=== PATIENT | female | born 1950 | race Caucasian/White ===

== ENCOUNTER → 2020-01-18 14:46 | Outpatient (CLI) | payer MEDICARE, SELFPAY ==
--- NOTE | ~2020-01-18 | CT_ITS ---
EXAMINATION: CT chest w con EXAM DATE: 01/18/2020 16:00 INDICATION: Lung nodule on MRI. TECHNIQUE: Spiral CT of the chest following intravenous injection of 75 mL Omnipaque 350. Axial, cor onal and sagittal images were reviewed. Coronal maximum intensity pixel images of chest reviewed. Susy he dose-length product (DLP) for this examination was 141.48 mGy-cm. The exposure was tailored accor ding to patient size (auto mA exposure control), and iterative reconstruction (ASIR) was used as briana tional dose reduction technique. There is no prior study for comparison. FINDINGS: There is an oblong-shaped left upper lobe nodule with surrounding groundglass halo, which can indicate this is acute inflammatory process. Solid component measures about 1.0 x 1.6 cm. Differe ntial diagnosis includes primary lung cancer. Given that PET/CT could be positive for both of this pr ocesses, short interval follow-up chest CT is recommended in 1 month. If this persists unchanged on f ollow-up then biopsy indicated. There is biapical scarring. There is mild to moderate emphysema. There are no pleural or pericardial effusions. Tracheobronchial tree is patent. There is no mediastinal, hilar or axillary lymphadeno jie. There is no pneumothorax. There is a right-sided aortic arch, normal congenital variance. Li thania and spleen in normal position. Heart normal in size. No evidence of coronary arterial calcifica tion. Breast implants. Upper abdomen is unremarkable. There is thoracic spondylosis without osteob lastic or osteolytic lesions identified. IMPRESSION: 1. Left upper lobe infection or primary lung cancer. Recommend one-month follow-up low-dose chest CT . 2. Mild to moderate emphysema. Reviewed, dictated and finalized at location B. PHERE PORTAL DEVELOPER IMPRESSION: 1. Left upper lobe infection or primary lung cancer. Recommend one-month follo w-up low-dose chest CT. 2. Mild to moderate emphysema.
[2020-01-18 15:38] LABS: Blood Urea Nitrogen 16 mg/dL (8-26); Estimated Glomerular Filt Rate > 60
== END ==
PROVIDERS: PCP Family Medicine; Visit Provider Family Medicine
DX: R91.1 Solitary pulmonary nodule (principal); J43.9 Emphysema, unspecified
CPT/HCPCS: 71260; Q9967

== ENCOUNTER → 2020-02-09 09:27 | Outpatient (CLI) | payer MEDICARE, SELFPAY ==
--- NOTE | ~2020-02-09 | CT_ITS ---
EXAMINATION: CT chest wo con DATE: 02/09/2020 09:41 INDICATION: Solitary pulmonary nodule TECHNIQUE: Computed tomography (CT) of the chest was performed without intravenous contrast. The dose -length product (DLP) was 41.77 mGy-cm. Automated exposure control and iterative reconstruction techn ique were employed. COMPARISON: 01/18/2020 FINDINGS: There has been interval decrease in size of the previously described left upper lobe nodule which measures 1.1 x 0.7 cm, previously 1.6 x 1.0 cm. There is moderate emphysema. No pleural effusi on or pneumothorax is identified. Symmetric scarring is present in the lung apices. There are cluster ed tree-in-bud nodules in the right lower lobe which have decreased, consistent with resolving infect ion/inflammation. Bilateral breast implants are noted. No pathologically enlarged thoracic lymph node s are identified. The heart size is normal. Calcified mediastinal lymph nodes are consistent with old granulomatous disease. A right-sided aortic arch is noted. Punctate calcifications in an otherwise n ormal spleen likely represent healed granulomatous disease. There is mild thoracic spondylosis. IMPRESSION: 1. Interval decrease in size of a right upper lobe nodule, likely resolving infection/inflammation. 2. Resolving tree-in-bud opacities of the right lower lobe, also likely resolving infection/inflammat ion. 3. Moderate emphysema. Reviewed, dictated and finalized at location A. IMPRESSION: 1. Interval decrease in size of a right upper lobe nodule, likely resolving inf ection/inflammation. 2. Resolving tree-in-bud opacities of the right lower lobe, also likely resolvi ng infection/inflammation. 3. Moderate emphysema.
== END ==
PROVIDERS: PCP Family Medicine; Visit Provider Family Medicine
DX: R91.1 Solitary pulmonary nodule (principal); J43.9 Emphysema, unspecified; R91.8 Other nonspecific abnormal finding of lung field
CPT/HCPCS: 71250

== ENCOUNTER 2020-06-19 10:53 | Outpatient (CLI) | payer OTHER, SELFPAY ==
--- NOTE | 2020-06-19 10:55 | ECG_ITS ---
Measurements Intervals [place] Rate: 80 P: 67 MI: 172 QRS: -10 QRSD: 95 T: 66 QT: 376 QTc: 434 Interpretive Statements SINUS RHYTHM POSSIBLE LEFT ATRIAL ENLARGEMENT INCOMPLETE RIGHT BUNDLE BRANCH BLOCK CANNOT RULE OUT SEPTAL INFARCT, AGE INDETERMINATE BASELINE ARTIFACT- I, II, III, V6 ABNORMAL ECG Electronically Signed On 06-19-2020 11:04:05 CDT by Brian Zacarias D.O.
== END 2020-06-19 10:54 | disposition home or self-care (01) ==
LOC: ANHSURGERY 10:54
PROVIDERS: PCP Family Medicine; Visit Provider Surgery Plastic and Reconstructive Surgery
DX: I10 Essential (primary) hypertension (principal); Z01.810 Encounter for preprocedural cardiovascular examination; I45.10 Unspecified right bundle-branch block
CPT/HCPCS: 93005

== ENCOUNTER 2020-06-20 00:10 | Outpatient (CLI) | payer OTHER, SELFPAY ==
[2020-06-20 17:56] LABS: SARS-CoV-2 RNA PCR Negative
== END 2020-06-20 00:11 | disposition home or self-care (01) ==
LOC: ANHCOVIDDT 00:11
PROVIDERS: PCP Family Medicine; Visit Provider Surgery Plastic and Reconstructive Surgery
DX: Z01.818 Encounter for other preprocedural examination (principal); Z11.59 Encounter for screening for other viral diseases
CPT/HCPCS: 87635; C9803; U0003

== ENCOUNTER 2020-06-22 02:29 | Day surgery (SDC) | payer OTHER, SELFPAY ==
[2020-06-14 10:42] VITALS: BMI 18.0
--- NOTE | 2020-06-21 09:14 | P.PNAN_ITS ---
Anes - Initial Pre Proc Eval Procedure: Operation Date: 06/22/20 07:30 Proposed Procedures p Bilateral Breast Implant Exchange - Yong Porter MD Date/Time: 06/21/20 09:14 Surgeon: Yong Porter MD Pre Op Diagnosis: Breast Implant Rupture Patient Data Age: 70 Gender: F Height: 1.66 m Weight: 50 kg Allergies Allergy/AdvReac Type Severity Reaction Status Date / Time Sulfa (Sulfonamide Allergy Unknown Skin Verified 06/14/20 10:41 Antibiotics) Reaction Home Medications Medication Instructions Recorded Confirmed Type lisinopril [Zestril] 10 mg QAM 10/01/19 06/14/20 History alprazolam 0.25 mg tablet 0.25 mg PO TID PRN #90 tablet 01/18/20 06/14/20 Rx aspirin 81 mg PO DAILY 06/14/20 06/14/20 History calcium carbonate-vitamin D3 1 tablet PO DAILY 06/14/20 06/14/20 History [Calcium 500 + D] cholecalciferol (vitamin D3) 25 mcg PO DAILY 06/14/20 06/14/20 History cyclosporine [Restasis] 1 drp OPHTHALMIC (EYE) DAILY 06/14/20 06/14/20 History denosumab [Prolia] 60 mg SUBCUT [id number] 06/14/20 06/14/20 History omega3,5,6,7,9 no.1-salmon oil 1 cap PO DAILY 06/14/20 06/14/20 History [Complete [place]] carisoprodol 350 mg tablet 350 mg PO TID PRN #21 tablet 06/19/20 06/19/20 Rx docusate sodium 100 mg capsule 100 mg PO DAILY #14 cap 06/19/20 Rx ondansetron HCl 4 mg tablet 4 mg PO Q8H #28 tablet 06/19/20 Rx tramadol 50 mg tablet 50 mg PO Q6H PRN #15 tablet 06/19/20 06/19/20 Rx Patient hx anesthesia problems: none Family hx anesthesia problems: none PMFSH Past Medical History Medical History (Updated 06/21/20 @ 09:13 by Manuel Crowder DO) Anxiety Hypertension Osteoporosis Tubal ligation evaluation Surgical History Surgical History H/O breast augmentation Social History Social History Smoking status: Former smoker Tobacco type: cigarettes Additional smoking assessment comments: STATES SOCCIAL SMOKER QUIT AGE 23 Alcohol intake: current Substance use: never Living arrangements: with family Spiritual care concerns: No Anes - Eval Final PreProcedure Day of Procedure 06/21/20 09:14 Patient weight: normal Heart: regular rate and rhythm Lungs: clear to auscultation and normal air movement Airway: Mallampati scale class III Neurological: alert and oriented Last oral intake: >/= 8 hours ASA classification: II Emergent: no Anesthetic plan: proceed Anesthesia type and monitoring: general LMA and standard monitoring Informed Consent: The patient's anesthetic plan and its attendant risks and benefits were discussed with the patient/family/POA. Questions were solicited and answers provided to the satisfaction of the patient/family/POA.
[2020-06-22] VITALS (9 sets, daily range): BP systolic 102–136; BP diastolic 59–91; PULSE 65–81; RESP 14–20; TEMP 36.6–36.9; O2SAT 94–100
[2020-06-22] MEDS: LACTATED RINGERS 1,000 ML 30 ML IV CONT ×2 (06:55→09:34)
--- NOTE | 2020-06-22 06:58 | WPDHPUPDATE1 ---
History and Physical Update Update Date/Time: 06/22/20 06:58 History and Physical has been reviewed, including an updated exam of the patient. There are NO changes in the patient's condition. Risks, benefits, and alternatives have been discussed and questions answered. Patient agrees to proceed with procedure.
--- NOTE | 2020-06-22 07:19 | PM.PROC ---
Procedure Note - Detailed Date of procedure: 06/22/20 Pre-op diagnosis: Breast Implant Rupture Post-op diagnosis: same Procedure performed: Bilateral breast implant exchange Description of procedure: Patient is here today for bilateral breast implant exchange. She is currently believed to be textured implants subglandular. She did have an MRI which shows left breast implant rupture. She would like proceed with implant exchange. She would like to send her capsules, at her expense, to pathology. Risks, benefits, alternatives again today were discussed in extensive detail. I want her to be very realistic about the risks involved as well as expectations. She understands we are going to a submuscular position and using a smooth implant. I was very up front honest about the limitations and differences of this from what she has. She understands there is always risk of implant loss due to infection or other causes. All questions answered and consent obtained. She was marked in the preoperative holding area with her verification. She was taken to the operating room placed supine on the operating room table. Anesthesia provided by anesthesiology and prepped and draped in standard sterile fashion. Surgical time-out was taken. 1% lidocaine and 0.25% Marcaine with epinephrine was used to provide a field block. A 15 blade used to excise the previous scar. I continued until the capsule was identified and removed the entire capsule bilateral. These were sent to pathology. I then incised the pectoralis major along its inferior border. I created a subpectoral pocket the appropriate dimensions. I irrigated with 3 L of bacitracin containing saline TUR tubing. I used 2-0 Vicryl to approximate the muscle to breast tissue in order to obliterate space and prevent migration of the implant to the wrong pocket. I verified a strict hemostasis and bilateral pockets. I used Betadine triple antibiotic containing solution and irrigated the pockets. Using a Huynh funnel and the no-touch technique the implant was introduced into the pocket. I closed using 2-0 Vicryl followed by 3-0 Monocryl running subcuticular 4-0 Monocryl and tissue glue. Dressings were placed. Implants: Bilateral subglandular changed to submuscular (dual plane). Right: REF SRLP-280 SN [id number] Left: REF SRLP-280 SN [id number] Anesthesia: GLMA Surgeon: Yong Porter MD Estimated blood loss (mL): 5 Drains: No Packing: No Pathology: yes (Completely excised capsule.) Complications: No immediate complications Condition: stable Disposition: PACU
[2020-06-22] MEDS: ceFAZolin 2 GM/D5W 50 ML 2 GM/50 ML BAG IVPB (07:29)
[2020-06-22] MEDS: LIDO 1%/EPINEPHRINE 1:100,000 20 ML VIAL 40 ML INFILTRATE (07:59)
[2020-06-22] MEDS: traMADol HCL 50 MG TABLET PO (10:47)
== END 2020-06-22 11:24 | disposition home or self-care (01) ==
PROVIDERS: PCP Family Medicine; Visit Provider Surgery Plastic and Reconstructive Surgery
PROC: (CPT 19342; principal; 2020-06-22 07:30)
DX: T85.41XA Breakdown (mechanical) of breast prosthesis and implant, initial encounter (principal); Y83.8 Other surgical procedures as the cause of abnormal reaction of the patient, or of later complication, without mention of misadventure at the time of the procedure; I10 Essential (primary) hypertension; M81.0 Age-related osteoporosis without current pathological fracture; F41.9 Anxiety disorder, unspecified; Z79.82 Long term (current) use of aspirin; Z87.891 Personal history of nicotine dependence
CPT/HCPCS: 19371; 19340; 88304; 88305; A9270; J0690; J1100; J1580; J2250; J2405; J2704; J3010; J7030; J7120

== ENCOUNTER → 2021-02-07 14:22 | Outpatient (CLI) | payer MEDICARE, SELFPAY ==
--- NOTE | ~2021-02-07 | CT_ITS ---
EXAMINATION: CT abdomen pelvis w con DATE: 02/07/2021 14:59 INDICATION: Left upper quadrant and epigastric abdominal pain. Abdominal and pelvic swelling. TECHNIQUE: Computed tomography (CT) of the abdomen and pelvis was performed with 100 cc Omnipaque 350 intravenous contrast. Automated exposure control and iterative reconstruction technique were employe d. Exam dose: 238.65 mGy-cm total exam DLP. COMPARISON: 02/09/2020 CT chest FINDINGS: The lung bases are clear of consolidation. Heart size is within normal limits. Right breast implant is partially included in this examination. The liver, gallbladder, bile ducts, pancreas and pancreatic duct are unremarkable. Multiple calcified splenic granulomas. Normal splenic size. Normal morphology of the adrenal glands. No renal mass lesion. No urinary tract calculus or hydroureteronephrosis is evident. The urinary blad nila and uterus unremarkable. Normal caliber of the abdominal aorta. No intraperitoneal or retroperitoneal or pelvic mass lesion or adenopathy or ascites. No bowel obstruction, bowel wall thickening, pneumatosis or intraperitoneal free air is evident. No suspicious osteolytic or osteoblastic lesions are noted. Osteoarthritic changes are noted at the h ips. IMPRESSION: Reviewed, dictated and finalized at Location A. Reviewed, dictated and finalized at location A. IMPRESSION:
[2021-02-07 14:45] LABS: Estimated Glomerular Filt Rate > 60
== END ==
PROVIDERS: PCP Family Medicine; Visit Provider Physician Assistant Medical
DX: R19.00 Intra-abdominal and pelvic swelling, mass and lump, unspecified site (principal)
CPT/HCPCS: 74177; Q9967

== ENCOUNTER 2022-08-07 14:57 | Outpatient (CLI) | payer MEDICARE, SELFPAY ==
[2022-08-07 18:54] LABS: Iron 118 ug/dL (37-170)
[2022-08-07 19:05] LABS: Percent Iron Saturation 36 % (20-50)
[2022-08-07 19:06] LABS: Transferrin 259 mg/dL (206-381)
== END 2022-08-07 14:58 | disposition home or self-care (01) ==
LOC: ANHGOSHLAB 14:58
PROVIDERS: PCP Family Medicine; Visit Provider Physician Assistant
DX: D64.9 Anemia, unspecified (principal)
CPT/HCPCS: 36415; 82728; 83540; 83550; 84466

== ENCOUNTER 2023-06-14 10:49 | Outpatient (CLI) | payer MEDICARE, SELFPAY ==
[2023-06-14 11:13] LABS: Calcium 9.8 mg/dL (8.4-10.2); Estimated Glomerular Filt Rate > 60
== END 2023-06-14 10:50 | disposition home or self-care (01) ==
LOC: ANHLAB 10:51
PROVIDERS: PCP Family Medicine; Visit Provider Family Medicine
DX: Z51.81 Encounter for therapeutic drug level monitoring (principal)
CPT/HCPCS: 36415; 82310; 82565

== ENCOUNTER 2024-01-08 07:55 | Outpatient (CLI) | payer MEDICARE, SELFPAY ==
[2024-01-08 19:01] LABS: Basophils Absolute Auto 0.1 K/mm3 (0.0-0.1); Basophils Percent Auto 1.2 % (0.2-1.2); Eosinophils Absolute Auto 0.3 K/mm3 (0-0.3); Eosinophils Percent Auto 5.1 % (0-4.4); Hematocrit 37.6 % (37.0-47.0); Hemoglobin 11.9 g/dL (12.0-15.0); Immature Granulocyte Absolute 0.02 K/mm3 (0.00-0.031); Immature Granulocyte Percent A 0.4 % (0-0.5); Lymphocytes Absolute Auto 1.87 K/mm3 (0.9-3.2); Mean Corpuscular HGB Conc 31.6 g/dl (32-36); Mean Corpuscular Hemoglobin 31.5 pg (26-34); Mean Corpuscular Volume 99.5 fl (80-100); Mean Platelet Volume 10.4 fl (7.4-10.4); Monocytes Absolute Auto 0.5 K/mm3 (0.1-0.6); Monocytes Percent Auto 9.3 % (2.6-8.5); Neutrophils Absolute Auto 2.4 K/mm3 (1.3-6.7); Platelet Count Result 247 k/mm3 (150-375); Red Blood Count 3.78 M/mm3 (4.2-5.4); Red Cell Distribution Width 12.3 % (11.5-14.5); White Blood Count 5.1 K/mm3 (4.5-10.0)
[2024-01-08 19:32] LABS: LDL Cholesterol Direct 108 mg/dL
[2024-01-08 19:41] LABS: Vitamin D 25 Hydroxy 53.8 ng/mL
[2024-01-08 20:13] LABS: Anion Gap 5 mmol/L (8-16); Blood Urea Nitrogen 30 mg/dL (7-17); Calcium 10.3 mg/dL (8.4-10.2); Carbon Dioxide 28 mmol/L (22-30); Chloride 105 mmol/L (98-107); Cholesterol 264 mg/dL (0-200); Estimated Glomerular Filt Rate > 60; Glucose 92 mg/dL (65-110); Potassium 5.5 mmol/L (3.4-5.0); Sodium 138 mmol/L (137-145); Triglycerides 67 mg/dL (<150)
[2024-01-08 21:05] LABS: HDL Direct 138 mg/dL
== END 2024-01-08 07:56 | disposition home or self-care (01) ==
PROVIDERS: PCP Family Medicine; Visit Provider Nurse Practitioner Family
DX: E55.9 Vitamin D deficiency, unspecified (principal); E78.2 Mixed hyperlipidemia; M81.0 Age-related osteoporosis without current pathological fracture; I10 Essential (primary) hypertension
CPT/HCPCS: 36415; 80048; 80061; 82306; 84443; 85025

== ENCOUNTER 2024-01-15 13:26 | Outpatient (CLI) | payer MEDICARE, SELFPAY ==
[2024-01-15 19:29] LABS: Alanine Aminotransferase 29 U/L (6-35); Albumin Level 4.2 g/dL (3.5-5.1); Alkaline Phosphatase 91 U/L (38-126); Anion Gap 5 mmol/L (8-16); Aspartate Amino Transferase 53 U/L (14-36); Blood Urea Nitrogen 32 mg/dL (7-17); Carbon Dioxide 26 mmol/L (22-30); Chloride 104 mmol/L (98-107); Estimated Glomerular Filt Rate > 60; Glucose 102 mg/dL (65-110); Potassium 4.7 mmol/L (3.4-5.0); Sodium 135 mmol/L (137-145)
== END 2024-01-15 13:27 | disposition home or self-care (01) ==
LOC: ANHGOSHLAB 13:28
PROVIDERS: PCP Family Medicine; Visit Provider Nurse Practitioner Family
DX: R74.8 Abnormal levels of other serum enzymes (principal); E87.8 Other disorders of electrolyte and fluid balance, not elsewhere classified
CPT/HCPCS: 36415; 80053

== ENCOUNTER 2024-07-29 12:34 | Outpatient (CLI) | payer MEDICARE, SELFPAY ==
[2024-07-29 19:00] LABS: Anion Gap 8 mmol/L (4-12); Blood Urea Nitrogen 25 mg/dL (7-17); Calcium 9.6 mg/dL (8.4-10.2); Carbon Dioxide 30 mmol/L (22-30); Chloride 97 mmol/L (98-107); Estimated Glomerular Filt Rate > 60; Glucose 183 mg/dL (65-110); Potassium 4.3 mmol/L (3.4-5.0); Sodium 135 mmol/L (137-145)
== END 2024-07-29 12:35 | disposition home or self-care (01) ==
PROVIDERS: PCP Family Medicine; Visit Provider Family Medicine
DX: M81.0 Age-related osteoporosis without current pathological fracture (principal); E55.9 Vitamin D deficiency, unspecified; Z51.81 Encounter for therapeutic drug level monitoring
CPT/HCPCS: 36415; 80048

== ENCOUNTER 2024-11-12 08:06 | Outpatient (CLI) | payer MEDICARE, SELFPAY ==
[2024-11-12 18:24] LABS: Alanine Aminotransferase 23 U/L (6-35); Albumin Level 4.6 g/dL (3.5-5.1); Alkaline Phosphatase 64 U/L (38-126); Anion Gap 3 mmol/L (4-12); Aspartate Amino Transferase 56 U/L (14-36); Bilirubin,Total 1.1 mg/dL (0.2-1.3); Blood Urea Nitrogen 27 mg/dL (7-17); Calcium 9.8 mg/dL (8.4-10.2); Carbon Dioxide 27 mmol/L (22-30); Chloride 105 mmol/L (98-107); Estimated Glomerular Filt Rate > 60; Glucose 74 mg/dL (65-110); Potassium 4.5 mmol/L (3.4-5.0); Sodium 135 mmol/L (137-145)
[2024-11-12 18:54] LABS: Vitamin D 25 Hydroxy 61.2 ng/mL
[2024-11-12 18:58] LABS: Hemoglobin A1C 5.3 % (<5.7)
== END 2024-11-12 08:07 | disposition home or self-care (01) ==
LOC: ANHGOSHLAB 08:08
PROVIDERS: PCP Family Medicine; Visit Provider Family Medicine
DX: R73.9 Hyperglycemia, unspecified (principal); R74.8 Abnormal levels of other serum enzymes; E55.9 Vitamin D deficiency, unspecified; M81.0 Age-related osteoporosis without current pathological fracture; Z51.81 Encounter for therapeutic drug level monitoring; Z79.899 Other long term (current) drug therapy
CPT/HCPCS: 36415; 80053; 82306; 83036

== ENCOUNTER 2025-02-09 08:16 | Outpatient (CLI) | payer MEDICARE, SELFPAY ==
--- OUTSIDE RECORDS SUMMARY | 2025-02-09 08:33 | XMS_ITS | CCD ---
Author Organization Unknown Care Team Providers Care Ecommerce Merchandising Manager Name Role Phone Lyly Balbuena MD Primary Care Provider Unavailab le Unavailable Chronic Care Management Unavaila ble Summary Purpose DataExchange Family History Family History data not found Problems Condition Codes Effective Dates Condition St atus Encounter for immunization ICD-10: Z23 ICD-9: V05.9 12/16/2020 Active Medication Administered No Medication Administered data Immunizations Vaccine Codes Dose Date Status COVID-19 IMM CVX: 213 01/08/2021 COVID-19 IMM CVX: 213 12/16/2020 Reason For Visit No Reason For Visit data Medical Equipment No Medical Equipment data Advance Directives No Advance Directive data
--- OUTSIDE RECORDS SUMMARY | 2025-02-09 08:33 | XMS_ITS | CCD ---
Author Organization Unknown Care Team Providers Care Copper Plater Name Role Phone Lyly Balbuena MD Primary [...]
--- OUTSIDE RECORDS SUMMARY | 2025-02-09 08:33 | XMS_ITS | Clinical Summary ---
Author Organization [facility] Address [address] [facility] [address] Attn: Epic Prelude ADT LENI ROMAN [id number] Care Team Providers Care Regulator Mechanic Name Role Phone Unavailable Primary Care Provider Unavailabl e Medications denosumab (Prolia) 60 mg/mL Syringe Inject 1 ml (60 mg) under the skin once every 6 months 1 mL 3 01/20/20 25 Active denosumab (Prolia) 60 mg/mL Syringe Inject 60 mg subcutaneously every 6 months. 1 mL 3 4 2:05 PM CDT 12/30/19 24 025 Discontin ued(Reord er) Social History Tobacco Use Types Packs/Day Years Used Date Smoking Tobacco: Never Assessed Comments Unknown Sex and Gender Information Value Date Recorded Sex Assigned at Not on file Legal Sex Female 7:49 AM CDT Gender Identity Not on file Sexual Orientation Not on file Plan of Treatment Health Maintenance Due Date Last Done Comments DTAP/TDAP/TD VACCINES (1 - Tdap) 1969 BREAST CANCER SCREENING 1990 COLORECTAL SCREENING 1995 Colorectal Cancer Screening 1995 FIT-DNA Q 3 years 1995 FIT/FOBT Q 1 year 1995 Flex Sig/CT Colonography Q 5 years 1995 PNEUMOCOCCAL VACCINE 50+ YEARS (1 of 1 - PCV) 05/19/20 00 ZOSTER VACCINE (1 of 2) 2000 OSTEOPOROSIS SCREENING 2015 INFLUENZA VACCINE (#1) 2024 RSV VACCINE (60+ or ) (1 - 1-dose 75+ series) 2025 Insurance GABRIELLA CHAVEZ [id number] RX [employer] Medicare Part D
--- OUTSIDE RECORDS SUMMARY | 2025-02-09 08:33 | XMS_ITS | Clinical Summary ---
Author Organization [facility] Address [address] [place] [address] Care Team Providers Care Door Patcher Name Role Phone Kt Rodriguez MD Primary Care Provider [phone] Allergies Active Allergy Reactions Criticality Noted Date Comments Sulfa (Sulfonamide Antibiotics) Hives 03/25 Medications ALPRAZolam (XANAX) 0.25 MG tablet Take by mouth nightly as needed. Active omeprazole (PRILOSEC) 40 MG delayed release capsuleIndicati ons:Snoring Take 1 capsule by mouth bedtime. 30 capsule 10 04/14/2013 Active oxyCODONE-aceta minophen (PERCOCET) 5-325 mg per tablet Take 1 tablet by mouth every 6 hours as needed for Pain. 10 tablet 0 09/18/2013 Active Active Problems Problem Noted Date Diagnosed Date Sleep-disordered breathing 04/14/2013 Sleep apnea, obstructive 04/14/2013 Lingual tonsil hypertrophy 04/14/2013 Reflux laryngitis 04/14/2013 Immunizations Immunization Administration Dates Next Due Covid-19 (Pfizer 12 yr+) (PF ) 30 mcg/0.3 mL bivalent, mRNA, andrey (GRIFFIN) 08/22/2022 Covid-19 (Pfizer 12 yr+) (PF ) 30 mcg/0.3 mL mRNA, andrey, vaccine (GRIFFIN) 04/12/2022 Family History Medical History Relation Name Comments Cancer Father Relation Name Status Comments Father Social History Tobacco Use Types Packs/Day Years Used Date Smoking Tobacco: Never Smokeless Tobacco: Never Alcohol Use Standard Drinks/Week Comments Yes 1 (1 standard drink = 0.6 oz pur e alcohol) Comments Unknown Sex and Gender Information Value Date Recorded Sex Assigned at Not on file Legal Sex Female 9:53 PM EDT Gender Identity Not on file Sexual Orientation Not on file Last Filed Vital Signs Vital Sign Reading Time Taken Comments Blood Pressure 107/72 04/14/2013 9:17 AM EDT Pulse 76 04/14/2013 9:17 AM EDT Temperature 36.7 C (98.1 F) 04/14/2013 9:17 AM EDT Respiratory Rate - - Oxygen Saturation 99% 04/14/2013 9:17 AM EDT Inhaled Oxygen Concentration - - Weight 50.6 kg (111 lb 9.6 oz) 04/14/2013 9:17 A M EDT Height 168 cm (5' 6.14 ) 04/14/2013 9:17 AM EDT Body Mass Index 17.94 04/14/2013 9:17 AM EDT Plan of Treatment Health Maintenance Due Date Last Done Comments HEPATITIS C SCREENING 1950 MEDICARE ANNUAL WELLNESS VISIT 1950 DTAP/TDAP/TD VACCINES (1 - Tdap) 1969 COLON CANCER SCREENING MONITORING 1995 BREAST CANCER SCREENING 2 YE AR MAMMOGRAM 2000 PNEUMOCOCCAL VACCINE: 50+ YE ARS (1 of 1 - PCV) 2000 COVID-19 Vaccine (2023-2 5 season) 2024 08/22/2022, 04/12/2022, 01/08/2021, Additional history exists INFLUENZA VACCINE (#1) 2024 08/19/2022 ZOSTER VACCINE (SHINGRIX) Completed 01/28/2022, OSTEOPOROSIS SCREENING DEXA SCAN Completed 03/11/20 22 Procedures Procedure Name Priority Date/Time Associated Diagnosis Comments DEXA BONE DENSITY AXIAL OR WHOLE BODY Routine 03/11/2022 1:43 PM EDT Age-related osteoporosis without current pathological fracture from Last 3 Months or Most Recently Relevant to Health Maintenance Results * Dexa Bone Density (03/11/2022 1:43 PM EDT) Anatomical Region Laterality Modality Abdomen Nuclear Medicine 03/11/2022 2:28 PM EDT Impressions 03/11/2022 3:32 PM EDT Impression: The patient has osteoporosis, based on the patient's T-score being less than or equal to -2.5 according to World Health Organization (WHO) criteria. Optimize calcium and vitamin D supplementation as appropriate. Risk factor modification, as appropriate, is recommended. Discussion: Continued use of a medication to increase bone mineral density is warranted if clinically appropriate. Follow-Up: The time for follow-up bone densitometry should be determined based on clinical assessment and could be performed in two years in order to evaluate a change in bone mineral density if clinically indicated. A follow-up DXA scan should be performed using the same DXA machine in order to make a direct comparison between bone mineral density evaluations. Dictated by: Gerardo Schmitt DO. 03/11/2022 2:28 PM Gary Lilly MD, have reviewed the study and agree with the findings in this report. 03/11/2022 3:32 PM Narrative 03/11/2022 3:32 PM EDT EXAMINATION: BONE DENSITY 03/11/2022 1:43 PM LOCATION: [facility] SCANNER MODEL: Precognate ([id number]) SOFTWARE VERSION: 13.6.0.2 ACCESSION NUMBER: [id number] INDICATION: Age-related osteoporosis without current pathological fracture. COMPARISON: None. FINDINGS: Bone Density: Region BMD T-score Z-score Classification AP Spine(L1-L4) 0.835 -1.9 0.3 Osteopenia Femoral Neck (Left) 0.713 -1.2 0.7 Osteopenia Total Hip (Left) 0.648 -2.4 -0.8 Osteopenia Femoral Neck (Right) 0.617 -2.1 -0.2 Osteopenia Total Hip (Right) 0.603 -2.8 -1.2 Osteoporosis Total Hip Mean 0.626 -2.6 -1.0 Osteoporosis World Health Organization criteria for BMD impression classify patients as: Normal (T-score at or above -1.0), Osteopenia (T-score between -1.0 and -2.5), or Osteoporosis (T-score at or below -2.5). Patient has been given treatment. Extended Spine: Region Area BMC BMD T-score Peak Z-score Age cm2 g g/cm2 Reference Matched L1 13.66 10.76 0.788 -1.8 80 0.1 102 L2 15.03 12.79 0.851 -1.6 83 0.6 108 L3 15.76 13.13 0.833 -2.3 77 0.0 100 L4 17.61 15.15 0.860 -1.8 81 0.5 107 L1-L2 28.69 23.55 0.821 -1.4 84 0.6 109 L1,L3 29.42 23.89 0.812 -1.8 80 0.3 105 L1,L4 31.27 25.91 0.829 -1.9 80 0.3 104 L2-L3 30.79 25.92 0.842 -2.0 80 0.3 104 L2,L4 32.64 27.94 0.856 -2.0 79 0.3 104 L3-L4 33.37 28.28 0.847 -2.3 77 0.0 100 L1-L3 44.45 36.69 0.825 -1.8 81 0.4 106 L1-L2,L4 46.30 38.70 0.836 -1.8 81 0.4 105 L1,L3-L4 47.03 39.04 0.830 -2.0 79 0.2 103 L2-L4 48.40 41.07 0.849 -2.1 79 0.2 103 L1-L4 62.06 51.83 0.835 -1.9 80 0.3 104 Procedure Note Gary Parish MD - 03/11/2022 EXAMINATION: BONE DENSITY 03/11/2022 1:43 PM LOCATION: [facility] SCANNER MODEL: Precognate ([id number]) SOFTWARE VERSION: 13.6.0.2 ACCESSION NUMBER: [id number] INDICATION: Age-related osteoporosis without current pathologicalfracture. COMPARISON: None. FINDINGS: Bone Density: Region BMD T-score Z-score Classification AP Spine(L1-L4) 0.835 -1.9 0.3 Osteopenia Femoral Neck (Left) 0.713 -1.2 0.7 Osteopenia Total Hip (Left) 0.648 -2.4 -0.8 Osteopenia Femoral Neck (Right) 0.617 -2.1 -0.2 Osteopenia Total Hip (Right) 0.603 -2.8 -1.2 Osteoporosis Total Hip Mean 0.626 -2.6 -1.0 Osteoporosis World Health Organization criteria for BMD impression classify patients as: Normal (T-score at or above -1.0), Osteopenia (T-score between -1.0 and -2.5), or Osteoporosis (T-score at or below -2.5). Patient has been given treatment. Extended Spine: Region Area BMC BMD T-score Peak Z-score Age cm2 g g/cm2 Reference Matched L1 13.66 10.76 0.788 -1.8 80 0.1 102 L2 15.03 12.79 0.851 -1.6 83 0.6 108 L3 15.76 13.13 0.833 -2.3 77 0.0 100 L4 17.61 15.15 0.860 -1.8 81 0.5 107 L1-L2 28.69 23.55 0.821 -1.4 84 0.6 109 L1,L3 29.42 23.89 0.812 -1.8 80 0.3 105 L1,L4 31.27 25.91 0.829 -1.9 80 0.3 104 L2-L3 30.79 25.92 0.842 -2.0 80 0.3 104 L2,L4 32.64 27.94 0.856 -2.0 79 0.3 104 L3-L4 33.37 28.28 0.847 -2.3 77 0.0 100 L1-L3 44.45 36.69 0.825 -1.8 81 0.4 106 L1-L2,L4 46.30 38.70 0.836 -1.8 81 0.4 105 L1,L3-L4 47.03 39.04 0.830 -2.0 79 0.2 103 L2-L4 48.40 41.07 0.849 -2.1 79 0.2 103 L1-L4 62.06 51.83 0.835 -1.9 80 0.3 104 Impression: The patient has osteoporosis, based on the patient's T-score being less than or equal to -2.5 according to World HealthOrganization (WHO) criteria. Optimize calcium and vitamin D supplementation as appropriate. Riskfactor modification, as appropriate, is recommended. Discussion: Continued use of a medication to increase bone mineral density is warranted if clinically appropriate. Follow-Up: The time for follow-up bone densitometry should be determined based on clinical assessment and could be performed in two years in orderto evaluate a change in bone mineral density if clinically indicated. Afollow-up DXA scan should be performed using the same DXA machine in order to makea direct comparison between bone mineral density evaluations. Dictated by: Gerardo Schmitt DO. 03/11/2022 2:28 PM Gary Lilly MD, have reviewed the study and agree with the findingsin this report. 03/11/2022 3:32 PM Kt Rodriguez MD IMG DEXA ORDERABLES Final Re sult from Last 3 Months or Most Recently Relevant to Health Maintenance Insurance [employer] NON DUAL PLAN [employer] NON DUAL PLAN [facility] [place] [address] Care Teams Door Patcher Relationship Specialty Start Date End Date Kt Rodriguez MD PCP - General 12/22/19
--- OUTSIDE RECORDS SUMMARY | 2025-02-09 08:33 | XMS_ITS | Clinical Summary ---
Author Organization [facility] Address [address] [place] [address] Care Team Providers Care Clay Structure Builder And Servicer Name Role Phone No, Pcp Primary Care Provider Unavailabl e Allergies Active Allergy Reactions Criticality Noted Date Comments Sulfa Antibiotics 05/26/2022 Other reaction(s): itching, rash Medications ALPRAZolam (XANAX) 0.25 MG tablet Take 1 tablet by mouth 3 times daily as needed for Anxiety. Active Denosumab (PROLIA [place]) Inject into the skin Active cycloSPORINE (RESTASIS) 0.05 % ophthalmic emulsion 1 drop into affected eye Ophthalmic Twice a day Active Active Problems No known active problems Encounters Date Type Department Care Team Description 01/27/2025 11:15 AM EST Office Visit Orthopaedics - [address] [place] [address] Amaya Chavez MD Right hand weakness (Primary Dx) 01/19/2025 Telephone Neurosurgery & Spine - [address] - [address] [place] [address] Sam Fajardo MD Call Patient 01/19/2025 Telephone Orthopaedics - [address] [place] [address] Amaya Chavez MD Other (NCS) 11/30/2024 Orders Only Formerly [facility] [address] [facility], [place] [address] Historical Provider, [facility] 11/25/2024 10:00 AM EST Office Visit Neurology - [address] [place] [address] Sam Fajardo MD Paresthesias [R20.2] (Primary Dx) from Last 3 Months Social History Tobacco Use Types Packs/Day Years Used Date Smoking Tobacco: Former Cigarettes Smokeless Tobacco: Never Tobacco Cessation:Counseling Given: Not Answered Comments Unknown Sex and Gender Information Value Date Recorded Sex Assigned at Female 01/26/2025 3:55 PM EST Legal Sex Female 11:36 PM EDT Gender Identity Not on file Sexual Orientation Not on file Last Filed Vital Signs Vital Sign Reading Time Taken Comments Blood Pressure 145/88 10/19/2024 9:58 AM EST Pulse 81 10/19/2024 9:57 AM EST Temperature 36.4 C (97.5 F) 10/19/2024 9:57 AM EST Respiratory Rate 16 07/11/2024 9:45 AM EDT Oxygen Saturation 99% 10/19/2024 9:57 AM EST Inhaled Oxygen Concentration - - Weight 49.9 kg (110 lb) 01/27/2025 11:47 AM EST Height 165.1 cm (5' 5 ) 01/27/2025 11:47 AM EST Body Mass Index 18.3 01/27/2025 11:47 AM EST Plan of Treatment Health Maintenance Due Date Last Done Comments Depression Screen 1962 DTaP/Tdap/Td vaccine (1 - Tdap) 1969 Breast cancer screen 1990 Lipids 1990 Colonoscopy 1995 Colorectal Cancer Screen 1995 FIT/FOBT: Average risk 1995 Fecal-DNA (Cologuard): [place] ge risk 1995 Sigmoidoscopy/CT colonography 1995 Pneumococcal 50+ years Vacci ne (1 of 1 - PCV) 2000 Shingles vaccine (1 of 2) 2000 Flu vaccine (#1) 06/24/2024 COVID-19 Vaccine ( - 2023-2 5 season) 2024 Annual Wellness Visit (Medic are Advantage) 11/24/2024 Respiratory Syncytial Virus (RSV) or age 60 yrs+ (1 - 1-dose 75+ series) 2025 GFR test (Diabetes, CKD 3-4, OR last GFR 15-59) Discontinued 06/07/2021 DEXA (modify frequency per F RAX score) Completed 03/11/2022 Hepatitis C screen Completed 11/30/2024 Hepatitis A vaccine Aged Out No longe r eligible based on patient's age to complete this topic Hepatitis B vaccine Aged Out No longe r eligible based on patient's age to complete this topic Hib vaccine Aged Out No longer eligi ble based on patient's age to complete this topic Meningococcal (ACWY) vaccine Aged Out No longer eligible based on patient's age to complete this topic Meningococcal B vaccine Aged Out No l onger eligible based on patient's age to complete this topic Polio vaccine Aged Out No longer elig ible based on patient's age to complete this topic Procedures Procedure Name Priority Date/Time Associated Diagnosis Comments HEPATITIS A ANTIBODY, TOTAL Routine 11/30/2024 10:17 AM EST HEPATITIS C ANTIBODY Routine 11/30/2024 10:17 AM EST HEPATITIS B CORE ANTIBODY, TOTAL Routine 11/30/2024 10:17 AM EST BASIC METABOLIC PANEL Routine 06/07/2021 5:54 PM EDT from Last 3 Months or Most Recently Relevant to Health Maintenance Results * Hepatitis C Antibody (11/30/2024 10:17 AM EST) Hepatitis C Ab Negative Negative [facility] Marta WATTS Blood 11/30/2024 10:1 7 AM EST 11/30/2024 5:39 PM EST [facility] Historical Provider IMMUNOLOGY ORDERABLES Fi nal Result [facility] [address] [facility], [facility] [place] [address] * (ABNORMAL) Hepatitis A Antibody, Total (11/30/2024 10:17 AM EST) Hep A Total Ab Positive( A) Negative [facility] Comment: Comment: The HAV total antibody assay detects both IgG and IgM but does not differentiate between them. A negative result suggests susceptibility to infection. A positive result could be due to vaccination, previously resolved infection or active infection. Testing for HAV IgM should be performed if active HAV infection is suspected. [facility] offers profiles that will automatically reflex positive HAV total antibody results to IgM (e.g., panel #[id number] HAV Antibody w/ Rfx). Performed At: [facility] [id number] Marcial Toth MD Ph:[phone] Blood 11/30/2024 10:1 7 AM EST 11/30/2024 5:39 PM EST [facility] Historical Provider IMMUNOLOGY ORDERABLES Fi nal Result Performing Organization Address [facility] Co de Phone Number [facility] [address] [address] * Hepatitis B Core Antibody, Total (11/30/2024 10:17 AM EST) Pathologist [facility] Hep B Core Total Ab Negative Negative [facility] Blood 11/30/2024 10:1 7 AM EST 11/30/2024 5:39 PM EST Result [facility] Provider IMMUNOLOGY ORDERABLES Fi nal Result Performing Organization Address [facility] de Phone Number [facility] [address] [place] [address] * (ABNORMAL) Basic Metabolic Panel (06/07/2021 5:54 PM EDT) [facility] Sodium 135 135 - 145 mmol/L [facility] Comment:Performing Lab: [facility] 6000 Pending Potassium 4.8 3.5 - 5.3 mmol/L [facility] Comment:Performing Lab: [facility] 6000 Pending Chloride 102 98 - 107 mmol/L [facility] Comment:Performing Lab: [facility] 6000 Pending CO2 23 22 - 29 mmol/L [facility] Comment:Performing Lab: [facility] 6000 Pending Glucose 90 70 - 99 mg/dL [facility] Comment:Performing Lab: [facility] 6000 Pending BUN 28(H) 8 - 23 mg/dL [facility] Comment:Performing Lab: [facility] 6000 Pending Creatinine 1.3(H) 0.5 - 1.0 mg/dL [facility] Comment:Performing Lab: [facility] 6000 Pending Anion Gap 10 2 - 17 mmol/L [facility] Comment:Performing Lab: [facility] 6000 Pending Osmolaliy Calculated 275 270 - 287 mOsm/kg [facility] Comment:Performing Lab: [facility] 6000 Pending Calcium 10.0 8.8 - 10.2 mg/dL [facility] Comment:Performing Lab: [facility] 6000 Pending GFR 48(L) >=90 mL/min/1.7 3m^2 [facility] Comment: VERIFIED by Discern Expert. Performing Lab: [facility] 6000 Pending GFR Non- 41(L) >=90 mL/min/1.7 3m^2 [facility] Comment: VERIFIED by Discern Expert. Interpretive Data: GFR Interpretation: % OF KIDNEY GFR STAGE FUNCTION == > 90 Normal kidney function STAGE 1 90-100% 89 to 60 Mild loss of kidney function STAGE 2 80-60% 59 to 45 Mild to moderate loss of kidney function STAGE 3a 59-45% 44 to 30 Moderate to severe loss of kidney function STAGE 3b 44-30% 29 to 15 Severe loss of kidney function STAGE 4 29-15% < 15 Kidney failure STAGE 5 <15% == Modified from National Kidney Foundation GFR Calculation performed using the CKD-EPI equation developed for use with IDMS traceable creatinine methods and is the calcualtion recommended by the National Kidney Foundation for estimating GFR in adults. Performing Lab: [facility] [address] Pending 06/07/2021 5:54 PM EDT 06/07/2021 5:55 PM EDT Comment:Blood us Bernice Bazzi PA-C CHEMISTRY ORDERABLE S Final Result [facility] from Last 3 Months or Most Recently Relevant to Health Maintenance [place] [address] A[employer] MEDICARE Care Teams Clay Structure Builder And Servicer Relationship Specialty Start Date End Date No, Pcp PCP - General 07/11/24
--- OUTSIDE RECORDS SUMMARY | 2025-02-09 08:33 | XMS_ITS | Referral Summary ---
Author Organization [facility] Address [address] [place] [address] Care Team Providers Care Scrap Cutter Name Role Phone Kt Rodriguez MD Primary Care Provider [phone] Allergies Active Allergy Reactions Criticality Noted Date [...] mcg/0.3 mL mRNA, andrey, vaccine (GRIFFIN) 04/12/2022 Social History Tobacco Use Types Packs/Day Years [...] 04/14/2013 9:17 AM EDT Plan of Treatment Not on file Procedures Procedure Name Priority Date/Time Associated Diagnosis [...] EXAMINATION: BONE DENSITY 03/11/2022 1:43 PM LOCATION: [facility] SCANNER MODEL: [employer] ([id number]) SOFTWARE VERSION: 13.6.0.2 ACCESSION NUMBER: [id number] INDICATION: Age-related osteoporosis without current pathological fracture. [...] EXAMINATION: BONE DENSITY 03/11/2022 1:43 PM LOCATION: [facility] SCANNER MODEL: [employer] ([id number]) SOFTWARE VERSION: 13.6.0.2 ACCESSION NUMBER: [id number] INDICATION: Age-related osteoporosis without current pathologicalfracture. COMPARISON: [...] Most Recently Relevant to Health Maintenance Insurance [facility] [place] [address] [facility] [place] NON DUAL PLAN SOLUTIONS NON DUAL PLAN SOLUTIONS NON DUAL PLAN Care Teams Scrap Cutter Relationship Specialty Start Date End Date Kt Rodriguez MD PCP - General 12/22/19
[2025-02-09 13:29] LABS: Alanine Aminotransferase 26 U/L (6-35); Albumin Level 4.7 g/dL (3.5-5.1); Alkaline Phosphatase 63 U/L (38-126); Anion Gap 10 mmol/L (4-12); Aspartate Amino Transferase 41 U/L (14-36); Bilirubin,Total 1.4 mg/dL (0.2-1.3); Blood Urea Nitrogen 24 mg/dL (7-17); Calcium 10.4 mg/dL (8.4-10.2); Carbon Dioxide 28 mmol/L (22-30); Chloride 102 mmol/L (98-107); Estimated Glomerular Filt Rate > 60; Glucose 86 mg/dL (65-110); Potassium 5.2 mmol/L (3.4-5.0); Sodium 140 mmol/L (137-145)
== END 2025-02-09 08:17 | disposition home or self-care (01) ==
LOC: ANHGOSHLAB 08:18
PROVIDERS: PCP Family Medicine; Visit Provider Family Medicine
DX: R74.8 Abnormal levels of other serum enzymes (principal)
CPT/HCPCS: 36415; 80053

== ENCOUNTER 2025-08-24 08:42 | Outpatient (CLI) | payer MEDICARE, SELFPAY ==
--- OUTSIDE RECORDS SUMMARY | 2025-08-24 08:56 | XMS_ITS | Clinical Summary ---
Author Organization [facility] Address [address], [address] [place] [address] Care Team Providers Care Transport Tank Technician Name Role Phone No, Pcp Primary Care [...] affected eye Ophthalmic Twice a day Active tacrolimus (PROTOPIC) 0.1 % ointment APPLY SMALL AMOUNT TOPICALLY TO THE AFFECTED AREA TWICE DAILY 5 Active ipratropium (ATROVENT) 0.06 % nasal sprayIndication s:Congestion of nasal sinus 2 sprays by Each Nostril route 4 times daily for 14 days 1 each 5 Active Active Problems No known active problems Encounters Date Type Department Care Team Description 07/01/2025 11:45 AM EDT Office Visit Primary Care - [facility] [address] [place] [address] Maude Montoya APRN - CARBON PASTE MIXER OPERATOR Congestion of nasal sinus (Primary Dx); Cough, unspecified type; Fever, unspecified 06/18/2025 9:45 AM EDT Office Visit Express Care - [address] [place] [address] Nini Villa APRN - CARBON PASTE MIXER OPERATOR Tooth infection (Primary Dx) from Last 3 Months Immunizations Immunization Administration Dates Next Due COVID-19, Inactive, PFIZER P URPLE top, DILUTE for use, (age 12 y+) 08/22/2022,04/12/2022 Social History Tobacco Use Types Packs/Day Years Used Date Smoking Tobacco: Former Cigarettes Smokeless Tobacco: Never Tobacco Cessation:Counseling Given: Not Answered Comments No Sex and Gender Information Value Date Recorded Sex Assigned at Female 01/26/2025 3:55 PM EST Legal Sex Female 11:36 PM EDT Gender Identity Not on file Sexual Orientation Not on file Last Filed Vital Signs Vital Sign Reading Time Taken Comments Blood Pressure 124/74 07/01/2025 11:25 AM EDT Pulse 82 07/01/2025 11:25 AM EDT Temperature 36.4 C (97.5 F) 07/01/2025 11:25 AM EDT Respiratory Rate 16 06/18/2025 9:47 AM EDT Oxygen Saturation 98% 07/01/2025 11:25 AM EDT Inhaled Oxygen Concentration - - Weight 52.6 kg (116 lb) 07/01/2025 11:25 AM EDT Height 165.1 cm (5' 5) 01/27/2025 11:47 AM EST Body Mass Index 19.3 01/27/2025 11:47 AM EST Plan of Treatment Health Maintenance Due Date Last Done Comments Depression Screen 1962 DTaP/Tdap/Td vaccine (1 - Tdap) 1969 Lipids 1990 Colonoscopy 1995 Colorectal Cancer Screen 1995 FIT/FOBT: Average risk 1995 Fecal-DNA (Cologuard): Average risk 1995 Sigmoidoscopy/CT colonography 1995 Pneumococcal 50+ years Vaccine (1 of 1 - PCV) 2000 Shingles vaccine (1 of 2) 2000 Annual Wellness Visit (Medicare Advantage) 11/24/2024 Respiratory Syncytial Virus (RSV) or age 60 yrs+ (1 - 1-dose 75+ series) 2025 Flu vaccine (#1) 06/24/2025 COVID-19 Vaccine (3 - 2024-2 6 season) 2025 08/22/2022, 04/12/2022 GFR test (Diabetes, CKD 3-4, OR last GFR 15-59) Discontinued 06/07/2021 DEXA (modify frequency per FRAX score) Completed 03/11/2022 Hepatitis C screen Completed [...] Procedure Name Priority Date/Time Associated Diagnosis Comments AMB POC COVID-19 & INFLUENZA A/B Routine 07/01/2025 12:04 PM EDT Congestion of nasal sinus Fever, unspecified HEPATITIS C ANTIBODY Routine 11/30/2024 10:17 AM EST BASIC METABOLIC PANEL Routine 06/07/2021 5:54 PM EDT from Last 3 Months or Most Recently Relevant to Health Maintenance Results * AMB POC COVID-19 & Influenza A/B (07/01/2025 12:04 PM EDT) SARS-COV-2 RNA, POC Negative INFLUENZA A RNA, POC Not-Detected INFLUENZA B RNA, POC Not-Detected Internal Control Lot number swab EXP date swab LOT NUMBER POC EXPIRATION DATE Lot number solution EXP date solution NASOPHARYNGEAL SWAB / Unknown 07/01/2025 12:04 PM EDT Maude Montoya CLERK GENERAL - CARBON PASTE MIXER OPERATOR POINT OF CARE TEST ORDERABLES Final Result * Hepatitis C Antibody (11/30/2024 10:17 AM EST) Hepatitis C Ab Negative Negative [facility] Blood 11/30/2024 10:1 7 AM EST 11/30/2024 5:39 PM EST us [facility] Historical Provider IMMUNOLOGY ORDERABLES Fi nal Result [facility] [address], [place] [address] * (ABNORMAL) Basic Metabolic Panel (06/07/2021 5:54 PM EDT) Sodium 135 135 - 145 mmol/L [facility] [...] Bazzi PA-C CHEMISTRY ORDERABLE S Final Result Performing Organization Address City/State/[facility] Co de Phone Number [facility] from Last 3 Months or Most Recently Relevant to Health Maintenance Insurance [employer] MEDICARE Care Teams Transport Tank Technician Relationship Specialty Start Date End Date No, Pcp PCP - General 07/11/24
--- OUTSIDE RECORDS SUMMARY | 2025-08-24 08:56 | XMS_ITS | Clinical Summary ---
Author Organization [facility] Address [address] Attn: Epic Prelude ADT LENI ROMAN [address] Care Team Providers Care Manufacturing Assistant Name Role Phone Unavailable Primary Care Provider Unavailabl e Medications denosumab (Prolia) 60 mg/mL Syringe Inject 1 ml (60 mg) under the skin once every 6 months 1 mL 3 02/10/2025 2:09 PM CDT 01/20/2025 Active Social History Tobacco Use Types Packs/Day Years Used Date Smoking Tobacco: Never Assessed Comments Unknown Sex and Gender Information Value Date Recorded Sex Assigned at Not on file Legal Sex Female 7:49 AM CDT Gender Identity Not on file Sexual Orientation Not on file Plan of Treatment Health Maintenance Due Date Last Done Comments DTAP/TDAP/TD VACCINES (1 - Tdap) 1969 COLORECTAL SCREENING 1995 Colorectal Cancer Screening 1995 FIT-DNA Q 3 years 1995 FIT/FOBT Q 1 year 1995 Flex Sig/CT Colonography Q 5 years 1995 PNEUMOCOCCAL VACCINE 50+ YEARS (1 of 1 - PCV) 05/19/20 00 ZOSTER VACCINE (1 of 2) 2000 OSTEOPOROSIS SCREENING 2015 RSV VACCINE (60+ or ) (1 - 1-dose 75+ series) 2025 INFLUENZA VACCINE (#1) [address] [id number] RX A[employer] Medicare Part D
--- OUTSIDE RECORDS SUMMARY | 2025-08-24 08:56 | XMS_ITS | Clinical Summary ---
Author Organization [facility] Address [address] [place] [address] Care Team Providers Care Strategic Partnership Specialist Name Role Phone Kt Rodriguez MD Primary Care Provider [phone] Allergies Active Allergy Reactions Criticality Noted Date [...] A M EDT Height 168 cm (5' 6.14) 04/14/2013 9:17 AM EDT Body Mass Index 17.94 04/14/2013 9:17 AM EDT Plan of Treatment Health Maintenance Due Date Last Done Comments HEPATITIS C SCREENING 1950 MEDICARE ANNUAL WELLNESS VISIT 1950 DTAP/TDAP/TD VACCINES (1 - Tdap) 1969 PNEUMOCOCCAL VACCINE: 50+ YE ARS (1 of 1 - PCV) 2000 RSV ADULT VACCINES (1 - 1-do se 75+ series) 2025 COVID-19 Vaccine (5 - 2024-2 6 season) 2025 08/22/2022, 04/12/2022, 01/08/2021, Additional history exists INFLUENZA VACCINE (#1) 2025 08/19/2022 ZOSTER VACCINE (SHINGRIX) Completed 01/28/2022, OSTEOPOROSIS [...] EXAMINATION: BONE DENSITY 03/11/2022 1:43 PM LOCATION: [facility] SCANNER MODEL: [employer] (S/[id number]) SOFTWARE VERSION: 13.6.0.2 ACCESSION NUMBER: [id number] INDICATION: Age-related osteoporosis without current pathological fracture. [...] EXAMINATION: BONE DENSITY 03/11/2022 1:43 PM LOCATION: [facility] SCANNER MODEL: [employer] (S/[id number]) SOFTWARE VERSION: 13.6.0.2 ACCESSION NUMBER: [id number] INDICATION: Age-related osteoporosis without current pathologicalfracture. COMPARISON: [...] Most Recently Relevant to Health Maintenance Insurance [facility] [employer]CR SOLUTIONS NON DUAL PLAN [employer] SOLUTIONS NON DUAL PLAN [employer] SOLUTIONS NON DUAL PLAN [id number] [place] [address] Care Teams Strategic Partnership Specialist Relationship Specialty Start Date End Date Kt Rodriguez MD PCP - General 12/22/19
--- OUTSIDE RECORDS SUMMARY | 2025-08-24 09:55 | XMS_ITS | CCD ---
Author Organization Unknown Care Team Providers Care Correctional Sergeant Name Role Phone Lyly Balbuena MD Primary [...]
[2025-08-24 13:13] LABS: Alanine Aminotransferase 25 U/L (6-35); Albumin Level 4.4 g/dL (3.5-5.1); Alkaline Phosphatase 62 U/L (38-126); Anion Gap 8 mmol/L (4-12); Aspartate Amino Transferase 46 U/L (14-36); Bilirubin,Total 1.6 mg/dL (0.2-1.3); Blood Urea Nitrogen 20 mg/dL (7-17); Calcium 9.5 mg/dL (8.4-10.2); Carbon Dioxide 25 mmol/L (22-30); Chloride 102 mmol/L (98-107); Estimated Glomerular Filt Rate > 60; Glucose 91 mg/dL (65-110); Potassium 4.5 mmol/L (3.4-5.0); Sodium 135 mmol/L (137-145); Total Protein 7.6 g/dL (6.3-8.2)
== END 2025-08-24 08:43 | disposition home or self-care (01) ==
LOC: ANHGOSHLAB 08:43
PROVIDERS: PCP Family Medicine; Visit Provider Family Medicine
DX: M81.0 Age-related osteoporosis without current pathological fracture (principal); R74.8 Abnormal levels of other serum enzymes; E87.5 Hyperkalemia
CPT/HCPCS: 36415; 80053